=== PATIENT | female | born 1960 | race Caucasian/White ===

== ENCOUNTER 2025-04-12 15:33 | Outpatient (AMB) | payer OTHER, SELFPAY ==
[2025-04-12 15:39] VITALS: BP 138/60; PULSE 66; RESP 18; O2SAT 97; BMI 35.6
--- NOTE | 2025-04-12 15:39 | A.OFFVIS_ITS ---
Vital Signs 04/12/25 15:39 Height 5 ft 3 in Weight 201 lb BMI 35.6 BP 138/60 Blood Pressure Location Lt brachial Position Sitting Respiration 18 Pulse 66 Pulse Source Pulse Oximeter Pulse Oximetry (%) 97 Oxygen Delivery Method Room Air Intake Visit Reasons: OTHER CHRONIC PAIN Field Assistant Required: No Allergies No Known Allergies Allergy (Verified 04/12/25 15:39) Medication List - Last Reconciled 04/12/25 by RAGHU García atorvastatin (Lipitor) 20 mg PO BEDTIME estradiol (Estrace) 0.5 mg PO DAILY gabapentin 300 mg PO BID hydrochlorothiazide 25 mg PO DAILY lisinopril 5 mg PO DAILY multivitamin 1 tab PO DAILY omeprazole magnesium (Prilosec OTC) 20 mg PO DAILY HPI Comments Details: The patient is a 64-year-old female presenting with chronic pain management, particularly focusing on neck pain and chronic pain syndrome. The patient reports a history of arthritis, primarily affecting her neck and knees. She has been experiencing chronic pain for several years, which has been managed with diazepam intermittently over the past 8 years. The patient describes the pain as burning, aching, pins and needles, stabbing and cramping, primarily starting in the anterior lower legs and sometimes affecting the neck. The patient has a history of fibromyalgia, diagnosed several years ago, which may contribute to her burning pain symptoms and chronic fatigue. She has undergone multiple evaluations in the remote past, including EMG testing, which did not reveal significant findings per patient. The patient also reports a history of cervical disc bulging, particularly at levels C4-C5 and C5-C6, identified via MRI approximately 6 years ago. Cervical MRI report is not available for review today. She underwent neck surgery about 15 years ago, which involved anterior cervical fusion. The patient experiences limited range of motion and pain in the neck, particularly when looking up with increased neck and upper back pain. The patient has been diagnosed with carpal tunnel syndrome on the right side, which contributes to weakness in the shoulders and neck. She has not undergone surgery for this condition. - Onset and Timing: Chronic pain present for several years, with intermittent flare-ups. - Quality and Character: Described as burning and cramping, aching, stabbing, pins and needles primarily in the anterior lower legs and neck. - Primary Location: Neck and legs, with radiation to shoulders. - Exacerbating Factors: Movement, particularly looking up, exacerbates neck pain. - Relieving Factors: Ice application provides temporary relief. - Interference: Pain interferes with work and daily activities, particularly due to weakness and fatigue. - Affect: Pain impacts daily activities and causes significant discomfort. - Analgesia: Previously managed with diazepam, which the patient reports as effective without causing drowsiness. - Adverse Effects: Muscle relaxants cause grogginess, leading to avoidance. 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 - Aberrant Drug Related Behaviors: No evidence of misuse, but patient requests diazepam for pain management. [facility] Medical History (Updated 04/12/25 @ 16:28 by RAGHU García) Bilateral carpal tunnel syndrome Urinary incontinence Fatty liver Herniated cervical disc (~2008) GERD (gastroesophageal reflux disease) Left knee pain Anxiety CKD stage 3a, GFR 45-59 ml/min Right carpal tunnel syndrome Primary osteoarthritis of first carpometacarpal joint of left hand Prediabetes Complete tear of left rotator cuff (~06/2024) Obesity (BMI 30-39.9) Hyperlipidemia HTN (hypertension) Fibromyalgia Chronic pain syndrome Cervicalgia Fusion of spine, cervical region Surgical History (Updated 04/12/25 @ 16:28 by RAGHU García) S/P cervical spinal fusion (~2009) S/P left rotator cuff repair (~07/2024) Review of Systems Const Details: - Musculoskeletal: Reports chronic pain in neck and legs, weakness in shoulders, and limited range of motion in neck. - Neurological: Reports burning sensation in legs, weakness, numbness and tingling in hands, right>left. - General: Denies significant sleep disturbances due to neck pain, but reports waking due to other pain. All systems reviewed & are unremarkable except as noted in HPI and below Physical Exam Vital Signs: Last Vital Signs Pulse 66 04/12/25 15:39 Resp 18 04/12/25 15:39 BP 138/60 04/12/25 15:39 Pulse Ox 97 04/12/25 15:39 Oxygen Delivery Method Room Air 04/12/25 15:39 BMI result Body Mass Index 35.6 General: Appears afebrile. Alert and oriented. Mood and affect appropriate. Follows and participates in conversation appropriately. Respiratory effort is unlabored. No cough. Able to transition from sit to stand unassisted. Ambulates with bilaterally normal heel strike and toe off. Multiple widespread TTPs bilaterally, including upper and lower extremities.? Neck Other: Patient with decreased cervical ROM in all planes/especially with lateral rotations. Reports increased pain with cervical extension. Spurling compression test negative. Elvey's tension test positive bilaterally, with radiation of pain from neck to wrist. Lhermitte's test was negative. DTR intact, +2 and symmetrical. Patient demonstrated 5/5 motor strength of bilateral upper extremities. 2 + radial pulses. Significant tightness and TTP bilateral throughout lower and upper trapezius muscles. No paravertebral tenderness over facet joints bilaterally. Neck: Yes normal visual inspection, Yes no lymphadenopathy, Yes supple, No anterior neck swelling, Yes no JVD, No prominent supraclavicular fat pad and Yes prominent dorsocervical fat pad General: Yes no CVA tenderness Back/Spine/Pelvis Back: no CVA tenderness Cervical Spine: No collar present, No Lhermitte's sign positive, loss of normal cervical lordosis, cervical muscular tenderness, pain with cervical ROM, Cervical spine scars present, cervical spasm, No Cervical spine tenderness and No step off deformity Thoracic/Lumbar Spine: thoracic and lumbar spine normal to inspection, No Thoracic/lumbar spine scar(s), pain with thoraco-lumbar ROM, thoraco-lumbar ROM limited, No thoracic spinal tenderness and No lumbar spinal tenderness Results Reviewed Results Reviewed: No imaging reports are available for review today. Assessment & Plan Assessment & Plan (1) Cervicalgia: Code(s): M54.2 - Cervicalgia Category: Medical (2) Cervical spondylosis: Code(s): M47.812 - Spondylosis without myelopathy or radiculopathy, cervical region Category: Medical (3) Fibromyalgia: Code(s): M79.7 - Fibromyalgia Category: Medical (4) Chronic pain syndrome: Code(s): G89.4 - Chronic pain syndrome Category: Medical (5) Cervical post-laminectomy syndrome: Code(s): M96.1 - Postlaminectomy syndrome, not elsewhere classified Category: Medical (6) Obesity (BMI 30-39.9): Code(s): E66.9 - Obesity, unspecified Category: Medical Plan The plan for managing the patient's chronic pain includes obtaining an x-ray of the neck to assess status of cervical fusion, rule out slippage and advanced degenerative changes. If significant arthritis is noted, bilateral diagnostic C4-C5-C6 medial branch blocks may be considered to alleviate pain from the facet joints. The patient is advised to avoid chiropractic manipulation of the neck and consider formal physical therapy. She has completed physical therapy s/p shoulder surgery and continues with home exercise program. Patient declined PT at this time. For the neck pain, radiofrequency ablation (RFA) is discussed as a potential long-term solution, providing relief for up to one year. The patient is informed about the option of peripheral nerve stimulation, although she expresses reluctance to pursue this treatment. The patient is scheduled for a Neurology consultation to further evaluate the leg pain and rule out neurological causes. Discussion includes the potential for restless leg syndrome and the need for updated testing given the time elapsed since the last evaluation. All questions and concerns have been answered and patient agreed with the treatment plan. Follow up for xray results and sooner as needed. Patient was informed and verbally consented to the use of an ambient scribe for clinic note documentation during this visit. Orders: Orders XR cervical spine 4V Today M47.812 - Spondylosis without myelopathy or radiculopathy, cervical region, M54.2 - Cervicalgia, M96.1 - Postlaminectomy syndrome, not elsewhere classified XR thoracic spine 2V Today G89.4 - Chronic pain syndrome, M96.1 - Postlaminectomy syndrome, not elsewhere classified Coding Level of Care Code New Pt Level 4 (39640) Diagnoses Cervicalgia M54.2 Cervical spondylosis M47.812 Fibromyalgia M79.7 Chronic pain syndrome G89.4 Cervical post-laminectomy syndrome M96.1 Obesity (BMI 30-39.9) E66.9
--- OUTSIDE RECORDS SUMMARY | 2025-04-12 18:29 | XMS_ITS | Encounter Summary ---
Author Organization [facility] Address [address] [place] [address] Care Team Providers Care Ethylbenzene Converter Operator Name Role Phone Evan Stewart MD Primary Care Provider [phone]- [phone] Encounter Details Date Type Department Care Team (Latest Contact Info) Description 11/11/2024 Lab Requisition [facility] - Main Lab [address] [facility] [place] [address] Era Bernard MD [address] [facility] [address] [place] [phone] Encounter for gynecological examination (general) (routine) without abnormal findings Social History Tobacco Use Types Packs/Day Years Used Date Smoking Tobacco: Former Cigarettes 1 13.8 0 08/05/1975 - 06/02/1989 Passive Smoke Exposure: Past Smokeless Tobacco: Never Alcohol Use Standard Drinks/Week Comments No 0 (1 standard drink = 0.6 oz pur e alcohol) alyssa Housing Instability Answer Date Recorde d Are you worried that in the next 2 months you may not have stable housing? No 07/11/2024 Food Access & Nutrition Answer Date Rec orded Do you have access to a vari ety of food including fruits and vegetables? Yes 07/11/2024 Access to Healthcare Answer Date Record ed Within the last 3 months, phill lauren many times did you visit the emergency department for your medical care? 0 07/11/2024 Health Literacy Answer Date Recorded How often do you need to hav e someone help you when you read instructions, pamphlets, or other written material from your doctor or pharmacy? Never 07/11/2024 Caregiver: How often do you need to have someone help you when you read instructions, pamphlets, or other written material from your doctor or pharmacy? Not on file 07/11/2024 Financial Risk Answer Date Recorded How hard is it for you to pa y for the very basics like food, housing, medical care, and air conditioning / heating? Somewhat hard 07/11/2024 Transportation Answer Date Recorded Has the lack of transportati on kept you from meetings, work, or from getting things needed for daily living? No Has the lack of transportati on kept you from medical appointments or from getting medications? No 07/11/2024 Social Isolation Answer Date Recorded How often do you feel lonely or isolated from th ose around you? Rarely 07/11/2024 Food Risk Answer Date Recorded Within the past 12 months we worried whether our food would run out before we got money to buy more. Sometimes true 024 Within the past 12 months th e food we bought just didn't last and we didn't have money to get more. Sometimes true 07/11/2024 Dependent Care Answer Date Recorded Do you need help finding or paying for care for your loved ones. For example, child care center administrator or elderly care for an older adult? No 07/11/2024 Education Answer Date Recorded Do you think completing more education or training, like finishing a GED, going to college, or learning a trade, would be helpful for you? No 07/11/2024 Employment and Income Answer Date Recor ded During the last four weeks, have you been actively looking for work? No 07/11/2024 Living Situation Answer Date Recorded What is your living situation? 1 09/11/2023 Interpersonal Safety Answer Date Record ed Physical Abuse 07/23/2024 Verbal Abuse 07/23/2024 Comments Unknown Sex and Gender Information Value Date Recorded Sex Assigned at Female 07/23/2024 9:36 AM EST Legal Sex Female 9:44 PM EST Gender Identity Female 07/23/2024 9:36 AM EST Sexual Orientation Straight 07/23/2024 9: 36 AM EST documented as of this encounter Plan of Treatment Upcoming Encounters Date Type Department Care Team (Late st Contact Info) Description 06/21/2025 4:00 PM EST [facility]ointment [facility] at [address] [place] [phone] 07/21/2025 3:45 PM EST Office Visit Orthopedic Surgery - [place] [address] [facility] [address] [place] [phone] Wei Kelley MD [address] [facility] [address] [place] [address] documented as of this encounter Procedures Procedure Name Priority Date/Time Associated Diagnosis Comments PAP SMEAR Routine 11/10/2024 12:00 AM EDT Encounter for gynecological examination (general) (routine) without abnormal findings documented in this encounter Results * Pap smear (11/10/2024 12:00 AM EDT) Interpretation Negative for intraepithelial lesion or malignancy 11/13/2024 1:33 PM T [facility] General Categorization Negative 11/13/2024 1:33 PM [facility] Specimen Adequacy Satisfactory for evaluation 11/13/2024 1:33 PM [facility] Pap Methodology Liquid Based Pap Test 11/13/2024 1:33 PM [facility] Disclaimer The Pap test is a screening test which carries an inherent false negative rate. These test results should be correlated with the patient's clinical findings and history. This Pap test was processed using an automated screening system. Technical cytopathology services provided by [facility], at [address] [facility], [place] [address] (CLIA # [id number]/John Bentley MD, Seat Maker.) 11/13/2024 1:33 PM [facility] Console Pap Interpretation Reported 11/13/2024 1:33 PM [facility] Brushing/Spatula Vaginal structure / Unknown 11/10/2024 11/11/2024 7:49 AM EDT us Era Bernard MD LAB CYTOLOGY ORDERABLES Final Result [facility] ([facility]) [facility] [address] [place] [address], documented in this encounter Visit Diagnoses Diagnosis Encounter for gynecological examination (general) (routine) without abnormal findings documented in this encounter Additional Health Concerns Assessment Noted Time PHQ-9 Depression Total Score: 0 10/21/19 25 7:01 PM EDT documented as of this encounter Care Teams Ethylbenzene Converter Operator Relationship Specialty Start Date End Date Evan Stewart MD [address] [place] [address] PCP - General 07/17/23 documented as of this encounter
--- OUTSIDE RECORDS SUMMARY | 2025-04-12 18:29 | XMS_ITS | Encounter Summary ---
Author Organization [facility] Address [address] [place] [address] Care Team Providers Care Associate Sales Representative Name Role Phone Evan Stewart MD Primary Care Provider [phone]- [phone] Encounter Details Date Type Department Care Team (Late st Contact Info) Description 12/31/2024 Lab Requisition [facility] - Main Lab [address] [facility] [place] [address] Christiano Ervin, JON [address] [place] [address] Gross hematuria Social History Tobacco Use Types Packs/Day Years [...] for your loved ones. For example, child adolescent care or elderly care for an older adult? [...] PM EST Appointment [facility] at [address] [phone] 07/21/2025 3:45 PM EST Office Visit Orthopedic Surgery - [place] [address] [facility] [address] [place] [phone] Wei Kelley MD [address] [facility] [address] [place] [address] documented as of this encounter Procedures Procedure Name Priority Date/Time Associated Diagnosis Comments AP OUTSIDE CONSULT Routine 12/23/2024 12 :00 AM EDT Gross hematuria documented in this encounter Results * Anatomic pathology outside consult (12/23/2024 12:00 AM EDT) Final Diagnosis A. Urine, Voided, [id number]: Negative for high grade urothelial carcinoma. Results of UroV[employer]ion fluorescence in situ hybridization (FISH) testing: CEP3: Normal CEP7: Normal CEP17: Normal LSI 9p21: Normal Interpretation: Normal profile Controls stained appropriately. Note: The results are intended as a screening device and should be interpreted in association with other clinical and pathological findings. 01/18/2025 5:10 PM EDT [facility] Clinical Information Gross hematuria R31.0 Urine Cytology/FISH (now) 01/18/2025 5:10 PM EDT [facility] Gross Description A. Urine, Voided, [id number]: Received one ThinPrep slide for cytology and one ThinPrep slide for UroVysion FISH 01/18/2025 5:10 PM EDT [facility] Disclaimer Unless otherwise specified, all tissue is 10% NB formalin fixed and paraffin embedded. Technical pathology services provided by [facility] at [address] [facility] [address], [place] [address] (CLIA #[id number]/Rebeca Rahman MD, Assistant To The President) 01/18/2025 5:10 PM EDT [facility] Tissue Urine specimen from urethra / Unknown 12/23/2024 12/31/2024 8:24 AM EDT Christiano WEBB LAB PATHOLOGY ORDERABLES Final Result [facility] ([facility]) [facility] [address] [place] [address], documented in this encounter Visit Diagnoses Diagnosis Gross hematuria documented in this encounter Additional Health Concerns Assessment Noted Time PHQ-9 Depression Total Score: 0 10/21/19 25 7:01 PM EDT documented as of this encounter Care Teams Associate Sales Representative Relationship Specialty Start Date End Date Evan Stewart MD [address] [place] [address] PCP - General 07/17/23 documented as of this encounter
--- OUTSIDE RECORDS SUMMARY | 2025-04-12 18:29 | XMS_ITS | Clinical Summary ---
Author Organization 175 [facility] Address [address] [place] [address] Phone Care Team Providers Care Sole Rounder Name Role Phone Evan Stewart MD Primary Care Provider Allergies No known active allergies Medications ammonium lactate (LAC-HYDRIN) 12 % lotion if needed. 02/02/2022 Active estradioL (ESTRACE) 1 mg tablet Take 0.5 Tablets by mouth daily. Active MULTIVITAMIN ORAL Take 1 Tab by mouth daily. Active diazePAM (VALIUM) 2 mg tablet Take 1 tablet (2 mg total) by mouth every 8 (eight) hours if needed for muscle spasms (USES FOR PAIN). Active TURMERIC ORAL Take 2 tablets by mouth 1 (one) time each day. Active gabapentin (NEURONTIN) 300 mg capsule Take 1 capsule (300 mg total) by mouth 2 (two) times a day. 180 each 10/27/2024 Active atorvastatin (LIPITOR) 20 mg tablet Take 1 tablet (20 mg total) by mouth at bedtime. 90 each 01/29/2025 Active hydroCHLOROthia zide (HYDRODIURIL) 25 mg tablet Take 1 tablet (25 mg total) by mouth 1 (one) time each day. 90 tablet 1 03/09/2025 Active lisinopriL (PRINIVIL,ZESTR IL) 5 mg tablet Take 1 tablet (5 mg total) by mouth 1 (one) time each day. 90 tablet 1 03/09/2025 Active omeprazole (PriLOSEC) [address] capsule Take 1 capsule (20 mg total) by mouth 1 (one) time each day. Do not crush or chew. 90 capsule 1 03/09/2025 Active Active Problems Problem Noted Date Diagnosed Date S/P left rotator cuff repair 08/04/2024 Complete tear of left rotator cuff 06/29/2024 Prediabetes 09/14/2022 Primary osteoarthritis of fi rst carpometacarpal joint of left hand 06/21/2021 Right carpal tunnel syndrome 06/21/2021 CKD (chronic kidney disease) stage 3, GFR 30-59 ml/min (CMS/HCC V24, CMS/HCC V28) 12/31/2020 Anxiety 12/01/2020 Elevated liver function tests 05/08/2019 Edema 05/06/2015 Left knee pain 05/06/2015 Overview (05/18/2024): Dr Palma Overweight 03/04/[address] scan of head 11/03/2011 Overview (05/18/2024): Lesions within the clivus, 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 Ha; had surgery 03/14 (anterior cervical discectomy and fusion) Hyperlipidemia 07/04/2009 Fatty liver 07/04/2009 Fibromyalgia 06/02/2009 Chronic pain 06/02/2009 Hypertension 06/02/2009 Impaired fasting glucose 06/02/2009 Overview (05/18/2024): Used to take Metformin per prior PCP for prediabetes , from about 2006 to 2011 approx Urinary incontinence 06/02/2009 Overview (05/18/2024): Dr. Taylor ([facility]); ongoing issue, has had 2 surgeries without relief Bilateral carpal tunnel syndrome 06/02/2009 Encounters Date Type Department Care Team Description 03/22/2025 11:00 AM EDT Office Visit Orthopedic Surgery - [place] 160 175 [facility] [address] [place] [address] Wei Kelley MD S/P left rotator cuff repair (Primary Dx) 03/09/2025 2:30 PM EDT Office Visit Adult Medicine [address] [address] Evan Stewart MD Primary hypertension (Primary Dx); Hyperlipidemia, unspecified hyperlipidemia type; Other chronic pain; Gastroesophageal reflux disease, unspecified whether esophagitis present; Annual physical exam; Neuropathy from Last 3 Months Immunizations Name Administration Dates Next Due MMR, measles mumps and rubel la Live (Priorix; M-M-R II) 12mo and older 05/31/2014 Tdap Tetanus diptheria acell ular pertussis (Boostrix; Adacel) 7yo and older 06/14/2011 Surgical History Surgery Date Site/Laterality Comments SECTION 1982, 1992, 1993 PROCEDURE: HI DELIVERY ONLY CHOLECYSTECTOMY 1995 PROCEDURE: HISTORICAL CHOLECYSTECTOMY PARTIAL HYSTERECTOMY 1997 PROCEDURE: HI SUPRACERVICAL ABDL HYSTER W/WO RMVL TUBE OVARY OTHER SURGICAL HISTORY PROCEDURE: ---- OTHER ----; COMMENT: Sling procedure, s/p partial removal, for urinary incontinence OTHER SURGICAL HISTORY 03/14 PROCEDURE: ---- OTHER ----; COMMENT: C6-7 anterior cervical discectomy and fusion; Dr Ha OTHER SURGICAL HISTORY 07/31/2019 PROCEDURE: HISTORICAL CA BASAL CELL; COMMENT: BCC nose (nodular) ROTATOR CUFF REPAIR 07/23/2024 Left Left shoulder arthroscopic rotator cuff repair, subacromial decompression, subacromial space w/part acromioplasty. Medical History Medical History Date Comments History of basal cell carcinoma 03/13/2019 DX:History of basal cell carcinoma; COMMENT: BCC 03/23 nose (nodular) Hyperlipidemia Hypertension GERD (gastroesophageal reflux disease) Anxiety Carpal tunnel syndrome, bilateral Dizziness Chronic pain disorder Neuromuscular disorder (CMS/ HCC V24, CMS/HCC V28) Arthritis Joint pain Family History Medical History Relation Name Comments Heart attack Aunt at 42 years old Coronary artery disease Father Coronary artery disease Maternal Grandfather in his 50's Colon polyps Mother Diverticulitis Coronary artery disease Mother late r in life CABGx3 Hypertension Mother TIA Other: psoriatric arthritis Mother Other: thoracic aortic aneurysm Mother Other: psoriasis Sister Drug abuse Son Diabetes Neg Hx Other cancer Neg Hx Relation Name Status Comments Aunt Father Alive Maternal Grandfather Mother Alive Sister Son Social History Tobacco Use Types Packs/Day Years Used Date Smoking Tobacco: Former Cigarettes 1 13.8 0 08/05/1975 - 06/02/1989 Passive Smoke Exposure: Past Smokeless Tobacco: Never Tobacco Cessation:Counseling Given: Not Answered Alcohol Use Standard Drinks/Week Comments No 0 [...] care for your loved ones. For example, children's choir director or elderly care for an older adult? [...] Orientation Straight 07/23/2024 9: 36 AM EST Obstetrics History Last Filed Vital Signs Vital Sign Reading Time Taken Comments Blood Pressure 122/72 03/09/2025 2:31 PM EDT Pulse 66 03/09/2025 2:31 PM EDT Temperature 36.2 C (97.1 F) 03/09/2025 2:31 PM EDT Respiratory Rate 12 03/09/2025 2:31 PM EDT Oxygen Saturation 100% 07/23/2024 2:42 PM EST Inhaled Oxygen Concentration - - Weight 90.3 kg (199 lb) 03/22/2025 11:19 AM EDT Height 160 cm (5' 2.99 ) 03/22/2025 11:19 AM EDT Body Mass Index 35.26 03/22/2025 11:19 AM EDT Plan of Treatment Upcoming Encounters Date Type Department Care Team (Late st Contact Info) Description 06/21/2025 4:00 PM EST Appointment [facility] [address] [place] [phone] 07/21/2025 3:45 PM EST Office Visit Orthopedic Surgery - [place] [address] [phone] Wei Kelley MD [address] [address] Health Maintenance Due Date Last Done Comments COVID-19 Vaccine (#1) 1966 Pneumococcal Vaccine: 50+ Years (1 of 2 - PCV) 1980 Zoster Vaccines (1 of 2) 1980 DTaP,Tdap,and Td Vaccines (2 - Td or Tdap) 06/14/2021 06/14/2011 Colorectal Cancer Screening: Colonoscopy 07/07/2022 HIV Screening 07/07/2022 Breast Cancer Screening 03/28/2024 03/28/2022, 02/18 Influenza Vaccine (#1) 2025 Social Influencers of Health Screening 07/11/2025 07/11/2024 Hypertension/CHF/CAD Annual BMP Blood Test 10/20/2025 10/20/2024, 07/17/2024, 12/31/2023, Additional history exists Cervical Cancer Screening: Pap Smear 11/11/2027 11/10/2024, 03/08/2020 Cholesterol Screening (Lipid Panel) 10/20/2029 10/20/2024, 12/31/2023, 12/31/2023 RSV Immunization Adult Patients (1 - 1-dose 75+ series) 2036 Hepatitis C Screening Completed 03/05/2013 MMR Vaccines Aged Out 05/31/2014 No longer eligi ble based on patient's age to complete this topic Depression Screening Completed 10/20/2024 HIB Vaccines Aged Out No longer eligi ble based on patient's age to complete this topic HPV Vaccines Aged Out No longer eligi ble based on patient's age to complete this topic Hepatitis A Vaccines Aged Out No long er eligible based on patient's age to complete this topic Hepatitis B Vaccines Aged Out No long er eligible based on patient's age to complete this topic IPV Vaccines Aged Out No longer eligi ble based on patient's age to complete this topic Meningococcal ACWY Vaccine Aged Out N o longer eligible based on patient's age to complete this topic Meningococcal B Vaccine Aged Out No l onger eligible based on patient's age to complete this topic RSV Immunization Patients Under 20 months Aged Out No longer eligible based on patient's age to complete this topic Varicella Vaccines Aged Out No longer eligible based on patient's age to complete this topic Medical Devices Implanted Type Area Associate Java Developer Device Identifier Shelf Expiration Date Model / Serial / Lot [place] Sut 5.5mm [facility] - Sn/A - [id number] Implanted:Qty : 1 on 07/23/2024 by Wei Kelley MD at [facility] [employer] Implants Sports Med Left: Shoulder ROSARIO AND NEPHEW - ENDOSCOPY [id number] 01/02/2027 [id number] / N/A / [id number] Anchors Tendon 8 - Sn/A - [id number] Implanted:Qty : 1 on 07/23/2024 by Wei Kelley MD at [facility] Arthroscopy Implants Sports Med Left: Shoulder ROSARIO AND NEPHEW - ENDOSCOPY [id number] 04/24/2027 2504-1 / N/A / [id number] [place] Bone Arthro Del Sys Advncd - Sn/A - [id number] Implanted:Qty : 1 on 07/23/2024 by Wei Kelley MD at [facility] Arthroscopy Implants Sports Med Left: Shoulder ROSARIO AND NEPHEW - ENDOSCOPY [id number] 12/23/2026 4403 / N/A / [id number] Implant Bioinductive W/Arth Del Med - Sn/A - [id number] Implanted:Qty : 1 on 07/23/2024 by Wei Kelley MD at [facility] [employer] Left: Shoulder ROSARIO AND NEPHEW - ENDOSCOPY [id number] 01/01/2027 4565 / N/A / [id number] Procedures Procedure Name Priority Date/Time Associated Diagnosis Comments PAP SMEAR Routine 11/10/2024 12:00 AM EDT Encounter for gynecological examination (general) (routine) without abnormal findings BASIC METABOLIC PANEL Routine 10/20/2024 9:30 AM EDT Elevated serum creatinine LIPID PANEL WITH REFLEX TO DIRECT LDL Routine 10/20/2024 9:30 AM EDT Hyperlipidemia, unspecified hyperlipidemia type CESAR SCREENING DIGITAL Routine 03/28/2022 4:43 PM EDT Encounter for screening mammogram for malignant neoplasm of breast HM HEPATITIS C SCREENING Routine 03/05/2013 from Last 3 Months or Most Recently Relevant to Health Maintenance Results * Pap smear (11/10/2024 12:00 AM EDT) Interpretation Negative for intraepithelial lesion or malignancy 11/13/2024 1:33 PM EDT [facility] General Categorization Negative 11/13/2024 1:33 PM EDT [facility] Specimen Adequacy Satisfactory for evaluation 11/13/2024 1:33 PM EDT [facility] Pap Methodology Liquid Based Pap Test 11/13/2024 1:33 PM EDT [facility] Disclaimer The Pap test is a screening test which carries an inherent false negative rate. These test results should be correlated with the patient's clinical findings and history. This Pap test was processed using an automated screening system. Technical cytopathology services provided by [facility], at [address] [place] [address] (CLIA # [id number]/John Bentley MD, Language Therapist.) 11/13/2024 1:33 PM EDT [facility] Console Pap Interpretation Reported 11/13/2024 1:33 PM EDT [facility] Brushing/Spatula Vaginal structure / Unknown 11/10/2024 11/11/2024 7:49 AM EDT us Era Bernard MD LAB CYTOLOGY ORDERABLES Final Result [facility] [address] [place] [address], * (ABNORMAL) Lipid panel with reflex to direct LDL (10/20/2024 9:30 AM EDT) Cholesterol 201(H) 0 - 200 mg/dL LAB CHEMISTRY METHOD 10/20/2024 12:34 PM EDT [facility] Triglycerides 178(H) 0 - 150 mg/dL LAB CHEMISTRY METHOD 10/20/2024 12:34 PM EDT [facility] HDL 60 >=40 mg/dL LAB CHEMISTRY METHOD 10/20/2024 12:34 PM EDT [facility] LDL Calculated 105(H) 0 - 100 mg/dL LAB CHEMISTRY METHOD 10/20/2024 12:34 PM EDT [facility] VLDL Cholesterol Hemant 35.6 mg/dL LAB CHEMISTRY METHOD 10/20/2024 12:34 PM EDT [facility] Non HDL Chol. (LDL+VLDL) 141 <145 mg/dL LAB CHEMISTRY METHOD 10/20/2024 12:34 PM EDT [facility] Chol/HDL Ratio 3.4 0.0 - 4.4 LAB CHEMISTRY METHOD 10/20/2024 12:34 PM T [facility] Blood Venous blood specimen / Unknown Venipuncture / Unknown 10/20/2024 9:30 AM EDT 10/20/2024 9:34 AM EDT us Evan Stewart MD LAB BLOOD ORDERABLES Final Result [facility] [address] [place] [address], * (ABNORMAL) Basic metabolic panel (10/20/2024 9:30 AM EDT) Sodium 137 133 - 145 mmol/L LAB CHEMISTRY METHOD 10/20/2024 12:34 PM EDT [facility] Potassium 4.2 3.5 - 5.5 mmol/L LAB CHEMISTRY METHOD 10/20/2024 12:34 PM [facility] Chloride 101 96 - 110 mmol/L LAB CHEMISTRY METHOD 10/20/2024 12:34 PM T [facility] CO2 30 21 - 32 mmol/L LAB CHEMISTRY METHOD 10/20/2024 12:34 PM EDT [facility] Anion Gap 6 3 - 11 LAB CHEMISTRY METHOD 10/20/2024 12:34 PM EDT [facility] Glucose 105(H) 70 - 100 mg/dL LAB CHEMISTRY METHOD 10/20/2024 12:34 PM EDT [facility] BUN 11 5 - 25 mg/dL LAB CHEMISTRY METHOD 10/20/2024 12:34 PM EDT [facility] Creatinine 0.96 0.50 - 1.10 mg/dL LAB CHEMISTRY METHOD 10/20/2024 12:34 PM EDT [facility] eGFR 67 >=60 mL/min/1. 73m2 LAB CHEMISTRY METHOD 10/20/2024 12:34 PM EDT [facility] Comment:Calculation based on the Chronic Kidney Disease Epidemiology Collaboration (CKD-EPI) equation refit without adjustment for race. BUN/Creatinine Ratio 11.5 LAB CHEMISTRY METHOD 10/20/2024 12:34 PM [facility] Calcium 9.5 8.5 - 10.5 mg/dL LAB CHEMISTRY METHOD [facility] Blood Venous blood specimen / Unknown Venipuncture / Unknown 10/20/2024 9:30 AM EDT 10/20/2024 9:34 AM EDT us Evan Stewart MD LAB BLOOD ORDERABLES Final Result [facility] [address] [place] [address], * CESAR SCREENING DIGITAL (03/28/2022 4:43 PM EDT) Anatomical Region Laterality Modality Mammography 03/28/2022 9:39 AM EDT Narrative 03/28/2022 4:43 PM EDT [facility] Diagnostic Imaging Department [address] [place] [address] Patient: DEB PAZ /Age/Sex: 1960 - 61 - F Unit#: [id number] Location/Status: SPDIMAM/REG CLI Mnemonic/Ordering Site: [facility] Ordering Physician: RAYRAY BRUNER TRANSPORT SPECIALIST Cesar Screening Digital - 03/28/22 - 1010 History: Bilateral breast cancer screening. Technique: Bilateral digital mammography. Conventional CC and MLO projections with tomosynthesis MLO views and computer aided detection. Findings: Comparison: 02/18/2019, dating back to 02/15/2012. Breast tissue is mostly fatty replaced (category a density) bilaterally (as calculated by [employer] software). There are benign calcifications bilaterally. There is no suspicious group of microcalcification, no suspicious mass, architectural distortion or suspicious asymmetry. Impression: No evidence of malignancy. BIRADS category 2, benign findings, 3342F [id number], [id number] Note: Patient information entered into a reminder system with a target due date for the next mammogram; PQRI II [id number] Dictating Physician: LUIS ESQUIVEL MD Electronically Signed by: LUIS ESQUIVEL MD Dic Date/Time: 03/28/22 1635 Sign date/Time: 03/28/22 1647 Procedure Note Luis Esquivel MD - 07/25/2022 [facility] Diagnostic Imaging Department [address] [place] [address] Patient: DEB PAZ /Age/Sex: 1960 - 61 - F Unit#: [id number] Location/Status: [facility] CLI Mnemonic/Ordering Site: [facility] Ordering Physician: RAYRAY BRUNER TRANSPORT SPECIALIST Cesar Screening Digital - 03/28/22 - 1010 History: Bilateral breast cancer screening. Technique: Bilateral digital mammography. Conventional CC and MLOprojections with tomosynthesis MLO views and computer aided detection. Findings: Comparison: 02/18/2019, dating back to 02/15/2012. Breast tissue is mostly fatty replaced (category a density) bilaterally(as calculated by [employer] software). There are benigncalcifications bilaterally. There is no suspicious group of microcalcification, nosuspicious mass, architectural distortion or suspicious asymmetry. Impression: No evidence of malignancy. BIRADS category 2, benign findings, 3342F [id number], 11268 Note: Patient information entered into a reminder system with a targetdue date for the next mammogram; RI II [id number] Dictating Physician: LUIS ESQUIVEL MD Electronically Signed by: LUIS ESQUIVEL MD Dic Date/Time: 03/28/22 1636 Sign date/Time: 03/28/22 1643 Rayray Bruner TRANSPORT SPECIALIST IMG BI PROCEDURES Final Resul t * Hm Hepatitis C Screening (03/05/2013) Pathologist [facility] Hepatitis C Screening abstracted Historical Provider HEALTH MAINTENANCE Final Result from Last 3 Months or Most Recently Relevant to Health Maintenance Insurance [facility] PUBLIC [employer] [place] [id number] Advance Directives * Full Code - Default (Latest Code Status on File) Date Activated Date Inactivated Comments 07/23/2024 9:50 AM 07/23/2024 6:30 PM This is or dario is used when code status has not been discussed with the patient, or code status is otherwise unknown/unconfirmed To update the patient's code status, place a code status order. Do not modify or discontinue any currently active code status orders. Care Teams Sole Rounder Relationship Specialty Start Date End Date Evan Stewart MD [address] [place] [address] PCP - General 07/17/23
--- OUTSIDE RECORDS SUMMARY | 2025-04-12 18:29 | XMS_ITS | Encounter Summary ---
Author Organization [facility] Address [address] [place] [address] Care Team Providers Care Machining Supervisor Name Role Phone Evan Stewart MD Primary Care Provider [phone] Encounter Details Date Type Department Care Team (Late st Contact Info) Description 12/17/2024 Lab Requisition [facility] - Main Lab [address] [place] [address] Christiano Ervin, JON [address] [place] [address] Gross hematuria Social History Tobacco Use Types [...] for your loved ones. For example, children's tutor nursery or elderly care for an older adult? [...] PM EST Appointment [facility] at [address] [phone] 07/21/2025 3:45 PM EST Office Visit Orthopedic Surgery - [place] 160 175 [facility] [address] [place] [phone] Wei Kelley MD 175 [facility] [address] [place] [address] documented as of this encounter Procedures Procedure Name Priority Date/Time Associated Diagnosis Comments AP OUTSIDE CONSULT Routine 12/14/2024 12 :00 AM EDT Gross hematuria documented in this encounter Results * Anatomic pathology outside consult (12/14/2024 12:00 AM EDT) Final Diagnosis A. Urine, Voided, ([id number]): Negative for high grade urothelial carcinoma. Acute inflammatory cells are present. Results of [employer] fluorescence in situ hybridization (FISH) testing: CEP3: Normal CEP7: Normal CEP17: Normal LSI 9p21: Normal Interpretation: Normal profile Controls stained appropriately. Note: The results are intended as a screening device and should be interpreted in association with other clinical and pathological findings. 12/30/2024 2:[address] [facility] Clinical Information Gross hematuria R31.0 Urine Cytology/FISH (now) 12/30/2024 2:[address] [facility] Gross Description A. Urine, Voided, ([id number]): Received one ThinPrep slide for cytology and one ThinPrep slide for [employer] FISH 12/30/2024 2:[address] [facility] Disclaimer Unless otherwise specified, all tissue is 10% NB formalin fixed and paraffin embedded. Technical pathology services provided by [facility] at [address] [place] [address] [address], [place] [address] (CLIA #[id number]/Rebeca Rahman MD, Marine Pipe Welder) 12/30/2024 2:[address] [facility] Tissue Urine specimen from urethra / Unknown 12/14/2024 12/17/2024 11:18 AM EDT Christiano WEBB LAB PATHOLOGY ORDERABLES Final Result [facility] [address] [place] [address], documented in this encounter Visit Diagnoses Diagnosis Gross hematuria documented in this encounter Additional Health Concerns Assessment Noted Time PHQ-9 Depression Total Score: 0 10/21/19 25 7:01 PM EDT documented as of this encounter Care Teams Machining Supervisor Relationship Specialty Start Date End Date Evan Stewart MD [address] [place] [address] PCP - General 07/17/23 documented as of this encounter
== END 2025-04-12 16:20 | disposition home or self-care (01) ==
LOC: HO.PMC 15:34
PROVIDERS: PCP Internal Medicine; Visit Provider Nurse Practitioner Family
DX: M54.2 Cervicalgia (principal); M47.812 Spondylosis without myelopathy or radiculopathy, cervical region; M79.7 Fibromyalgia; G89.4 Chronic pain syndrome; M96.1 Postlaminectomy syndrome, not elsewhere classified; E66.9 Obesity, unspecified
CPT/HCPCS: 99204

== ENCOUNTER → 2025-04-12 15:33 | Outpatient (BNVA) | payer OTHER, SELFPAY | PROVIDERS: PCP Internal Medicine; Visit Provider Nurse Practitioner Family | DX: M54.2 Cervicalgia (principal); M47.812 Spondylosis without myelopathy or radiculopathy, cervical region; M79.7 Fibromyalgia; G89.4 Chronic pain syndrome; M96.1 Postlaminectomy syndrome, not elsewhere classified; E66.9 Obesity, unspecified | CPT/HCPCS: 99202 ==